=== PATIENT | female | born 1985 | race Two or more races ===

== ENCOUNTER → 2016-11-04 | Outpatient (CLI) | payer OTHER | LOC: BRMIMAGING 10:56 | PROVIDERS: ATTEND Family Medicine | DX: R93.8 Abnormal findings on diagnostic imaging of other specified body structures (principal); D25.1 Intramural leiomyoma of uterus; N83.202 Unspecified ovarian cyst, left side; N88.8 Other specified noninflammatory disorders of cervix uteri | CPT/HCPCS: 76856-PO ==

== ENCOUNTER → 2016-12-06 | Outpatient (CLI) | payer OTHER | LOC: CIMAGING 11:14 | PROVIDERS: ATTEND Family Medicine | DX: R06.00 Dyspnea, unspecified (principal); J45.909 Unspecified asthma, uncomplicated | CPT/HCPCS: 71020-PO ==

== ENCOUNTER 2016-12-10 15:58 | Emergency (ER) | payer OTHER ==
[2016-12-10 16:08] VITALS: O2SAT 96
[2016-12-10] MEDS ORDERED: IPRATROPIUM/ALBUTEROL 3 ML DEYVIAL IH ONE (16:14)
[2016-12-10] MEDS ORDERED: IBUPROFEN 600 MG TAB PO ONE (16:16)
[2016-12-10] MEDS ORDERED: DEXAMETHASONE 4 MG/ML VIAL IM ONE (17:16)
[2016-12-10] MEDS ORDERED: DEXAMETHASONE 10 MG/ML VIAL ONE (17:18)
--- NOTE | 2016-12-10 17:39 | EDPHY ---
H & P Stated Complaint: chest XR 2 days ago -on prednisone and inhaler with out relief Time Seen by Provider: 12/10/16 16:01 HPI/ROS: CHIEF COMPLAINT: Wheezing History by patient HISTORY OF PRESENT ILLNESS: 31 old woman with a history of asthma and no prior admits for this presents complaining of persistent cough and wheezing. Patient was seen by her primary care physician and placed on prednisone several days ago. Her last dose of prednisone is due tonight. She returns today because she continues to cough and wheeze. She says she is worried because she is using her albuterol inhaler frequently. She denies any fever chills. Her cough is mostly nonproductive. There has been no associated nausea or vomiting. She denies any leg pain or swelling. She denies any chest pain complains of tightness as her usual wheezing. She does not smoke does not live with anyone who smokes. REVIEW OF SYSTEMS: As in HPI, and all other systems reviewed and are negative Source: Patient - Personal History LMP (Females 10-55): 15-21 Days Ago Current Tetanus Diphtheria and Acellular Pertussis (TDAP): Yes - Medical/Surgical History Hx Asthma: Yes Hx Chronic Respiratory Disease: No Hx Diabetes: No Hx Cardiac Disease: No Hx Renal Disease: No Hx Cirrhosis: No Hx Alcoholism: No Hx HIV/AIDS: No Hx Splenectomy or Spleen Trauma: No Other PMH: choly, VOCAL CORD DYSFUNCTION - Social History Smoking Status: Never smoked - Physical Exam Exam: General Appearance: Alert, obese, speaking full sentences, no respiratory distress. Head: normocephalic, atraumatic Eyes: Pupils equal and round, reactive to light, no pallor or injection. Mouth: Mucous membranes moist. Respiratory: Normal, effort, lungs are clear to auscultation. Diffuse wheezes but with air movement throughout. No chest wall tenderness Cardiovascular: Regular rate and rhythm. S1, S2, no murmurs, gallops or rubs appreciated Gastrointestinal: Abdomen is soft and nontender, no masses, bowel sounds normal. Back: No CVA tenderness, no bony tenderness Neurological: Awake, alert and oriented x 3, no pronator drift, normal gait, no pronator drift Skin: Warm and dry, no rashes. Musculoskeletal: No deformities or tenderness. Extremities: full range of motion, no edema, no tenderness, DP2+ bilat Psychiatric: Patient has normal affect, there is no agitation. Constitutional: Initial Vital Signs Temperature (C) 36.6 C 12/10/16 16:07 Heart Rate 108 H 12/10/16 16:07 Respiratory Rate 18 12/10/16 16:07 Blood Pressure 148/90 H 12/10/16 16:07 O2 Sat (%) 96 12/10/16 16:07 O2 Delivery Mode Room Air Allergies/Adverse Reactions: adhesive Allergy (Verified 05/15/15 15:15) Home Medications: Medication Instructions Recorded Nexium 40 mg PO DAILY06 05/15/15 Lexapro 20 mg PO DAILY AT 2PM 09/10/15 Singulair 10 mg (*) 10 mg PO HS 09/10/15 Ventolin Hfa Inhaler 2 puffs IH PRN 09/10/15 Benzonatate [Tessalon Pearles (RX)] 100 mg PO TID PRN #20 cap 12/10/16 Prednisone 12/10/16 Medical Decision Making ED Course/Re-evaluation: 31-year-old woman with a history of asthma presents with persistent wheezing x1 week. On exam patient was wheezing. Her peak flow was just below 350. Patient was given a DuoNeb and on re-evaluation continued to have persistent wheezing with minimal change in her peak flow. She was given 2 more nebulizer treatments after which her peak flow improved to above 350 and on re-examine her lungs were clear with good air movement throughout. This point the patient was feeling better although still worried that she was going to persistently cough at home. She has 1 more dose of prednisone left. I offered her IM dexamethasone, which should get her through the weekend with steroids and the patient agreed. She also requested Silvestre Hart as this worked for her in the past and so she has been given a prescription for this as well. We discussed return precautions. The patient was discharged home in improved condition. - Data Points Medications Given: Discontinued Medications Albuterol/Ipratropium (Duoneb) 3 ml IH EDNOW ONE Stop: 12/10/16 16:15 Last Admin: 12/10/16 16:21 Dose: 3 ml Dexamethasone (Decadron Injection) 10 mg IM EDNOW ONE Stop: 12/10/16 17:17 Last Admin: 12/10/16 17:30 Dose: 10 mg Departure - Departure Disposition: Home, Routine, Self-Care Clinical Impression: Exacerbation of asthma Qualifiers: Asthma severity: mild Asthma persistence: unspecified Qualified Code(s): J45.901 - Unspecified asthma with (acute) exacerbation Condition: Good Instructions: Asthma (ED) Additional Instructions: You were seen by Dr. Anat Ball today. Take your dose of prednisone tonight. The injection of steroids we gave you will get a through the rest of the weekend until Monday. Use her albuterol inhaler when you are coughing or having wheezing. Try hot drinks with honey for coughing as well. You may take ibuprofen and/or Tylenol for pain and achiness. Please follow up with the primary care physician on Monday for recheck and sooner in the ED if worse. Return for any worsening or new concerns. Referrals: Phuong Cortes MD [Primary Care Provider] - As per Instructions Prescriptions: Benzonatate [Tessalon Pearles (RX)] 100 mg PO TID PRN #20 cap PRN Reason: Cough, Mild
[2016-12-10 18:03] VITALS: BP 138/88; PULSE 98; RESP 20; TEMP 98.2
== END 2016-12-10 17:59 | disposition home or self-care (01) ==
LOC: CED 15:58
DX: J45.901 Unspecified asthma with (acute) exacerbation (principal)
CPT/HCPCS: J1100